=== PATIENT | female | born 1975 | race Caucasian/White ===

== ENCOUNTER → 2020-01-29 | Outpatient (CLI) | payer OTHER ==
--- NOTE | 2020-02-03 10:51 | REPMRS ---
Patient History The patient states she had a clinical breast exam in October 2019. No known family history of cancer. Digital Woman Screen Mammo: January 29, 2020 - Exam #: [id number] Bilateral CC and MLO view(s) were taken. Technologist: Adirenne Arreola, Technologist Prior study comparison: October 24, 2018, bilateral digital woman screen mammo, performed at [facility]. November 26, 2016, bilateral digital woman screen mammo, performed at [facility]. FINDINGS: The breast tissue is heterogeneously dense. This may lower the sensitivity of mammography. The visualized implant margins are smooth. The Volpara volumetric breast density category is: D . Breast parenchymal density pattern is essentially symmetric. No dominant mass, grouped microcalcification, or architectural distortion is evident on either side. 3-D tomosynthesis shows no additional findings. No significant changes when compared with prior studies. Assessment: BI-RADS/ACR category 2 mammogram. Benign Findings. Recommendation Routine screening mammogram of both breasts in 1 year (for women over age 40). This patient's Lifetime Breast Cancer RIsk is estimated at 10.5 %. This mammogram was interpreted with the aid of an FDA-approved computer-aided dectection system. Electronically Signed By: Stuart Ly MD 02/03/20 [id number]
== END ==
LOC: M WHC 14:47
PROVIDERS: ATTEND Nurse Practitioner Primary Care
DX: Z12.31 Encounter for screening mammogram for malignant neoplasm of breast (principal)

== ENCOUNTER → 2021-08-28 | Outpatient (CLI) | payer OTHER | LOC: M WHC 08:46 | PROVIDERS: ATTEND Nurse Practitioner Primary Care | DX: Z12.31 Encounter for screening mammogram for malignant neoplasm of breast (principal) ==

== ENCOUNTER → 2022-10-26 | Outpatient (CLI) | payer OTHER | LOC: M WHC 14:33 | PROVIDERS: ATTEND Family Medicine | DX: Z12.31 Encounter for screening mammogram for malignant neoplasm of breast (principal); N64.89 Other specified disorders of breast ==

== ENCOUNTER → 2022-11-16 | Outpatient (CLI) | payer OTHER | LOC: M WHC 08:19 | PROVIDERS: ATTEND Family Medicine | DX: R92.8 Other abnormal and inconclusive findings on diagnostic imaging of breast (principal) | CPT/HCPCS: 77065; G0279 ==

== ENCOUNTER → 2023-10-29 | Outpatient (CLI) | payer OTHER | LOC: M WHC 14:03 | PROVIDERS: ATTEND Nurse Practitioner Family | DX: Z12.31 Encounter for screening mammogram for malignant neoplasm of breast (principal) ==

== ENCOUNTER → 2024-07-17 | Outpatient (CLI) | payer OTHER ==
[~2024-07-17] MED LIST: PROHANCE 279.3MG/ML 15ML VIAL ONE
== END ==
LOC: M PLAIMG 14:05
PROVIDERS: ATTEND Nurse Practitioner Family
DX: Z98.82 Breast implant status (principal)
CPT/HCPCS: A9576; C8908

== ENCOUNTER → 2025-07-20 | Outpatient (CLI) | payer OTHER | LOC: M WHC 15:23 | PROVIDERS: ATTEND Nurse Practitioner Family | DX: Z12.31 Encounter for screening mammogram for malignant neoplasm of breast (principal) ==